=== PATIENT | male | born 1960 | race Caucasian/White ===

== ENCOUNTER 2018-09-15 06:25 | Day surgery (SDC) | payer BC ==
[~2018-09-15] VITALS: Ht 182.9 cm; Wt 134.5 kg
[~2018-09-15 06:25] MED LIST: ACETAMINOPHEN 500 MG TABLET PO PRN; BUPIVACAINE-EPI 0.25%-1:200000 MPF 30 ML VIAL. IJ ONE; DEXAMETHASONE SOD PHOS 20 MG/5 ML VIAL. ONE; LIDOCAINE 2% PF 5 ML VIAL. ONE; ONDANSETRON PF 4 MG/2 ML VIAL. ONE; PROPOFOL 20 ML IV ONE; ROCURONIUM 50 MG/5 ML VIAL. ONE; ceFAZolin SODIUM 3 GM in IV DEXTROSE 5% 100ML 100 ML IV PRN; fentaNYL PF VIAL 100 MCG/2 ML VIAL ONE
[2018-09-15] MEDS ORDERED: ATEN50TA PO (06:53)
[2018-09-15] MEDS ORDERED: NIFE90TA PO (06:54)
[2018-09-15] MEDS ORDERED: LISI-334 PO (06:55)
[2018-09-15] MEDS ORDERED: ASPI81TA50 PO (06:55)
[2018-09-15] MEDS ORDERED: PROCHLORPERAZINE 10 MG/2 ML VIAL. IV PRN (07:00)
[2018-09-15] MEDS ORDERED: IV RINGERS,LACTATED 1000ML 1,000 ML IV SCH (07:00)
[2018-09-15] MEDS ORDERED: fentaNYL PF VIAL 100 MCG/2 ML VIAL IV PRN ×2 (07:00)
[2018-09-15] MEDS ORDERED: MORPHINE SULFATE 2 MG/ML VIAL. IV PRN (07:00)
[2018-09-15] MEDS ORDERED: HYDROmorphone 2 MG/ML VIAL IV PRN (07:00)
[2018-09-15] MEDS ORDERED: ONDANSETRON PF 4 MG/2 ML VIAL. IV PRN (07:00)
[2018-09-15] MEDS ORDERED: LIDOCAINE 1% PF 2 ML VIAL. ID PRN (07:00)
[2018-09-15] MEDS ORDERED: BUPIVACAINE MPF 0.25% 30 ML VIAL. ONE (07:19)
[2018-09-15] MEDS ORDERED: MIDAZOLAM HCL/PF 2 MG/2 ML VIAL. ONE (07:23)
[2018-09-15] MEDS ORDERED: GLYCOPYRROLATE 1 MG/5 ML VIAL. ONE (08:07)
[2018-09-15] MEDS ORDERED: NEOSTIGMINE METHYLSULFATE 5 MG/5 ML SYRINGE. ONE (08:07)
[2018-09-15] MEDS ORDERED: ePHEDrine PF IN SALINE 50 MG/10 ML SYRINGE. IV ONE (08:17)
[2018-09-15] MEDS ORDERED: ROCURONIUM 50 MG/5 ML VIAL. ONE (08:27)
[2018-09-15] MEDS ORDERED: KETOROLAC 30 MG/ML INJ FOR OR. INJ ONE (08:54)
[2018-09-15] MEDS ORDERED: SEVOFLURANE 61 TO 120 MINUTES. IH ONE (09:16)
--- NOTE | 2018-09-15 09:21 | PDOC4 ---
Operative Note Operative Note Date: 09/15/2018 Preoperative diagnosis: Incarcerated ventral hernia Postoperative diagnosis: Same Procedure: Robotic-assisted laparoscopic hernia repair with mesh Surgeon: Timo Specimen: None Dictation: Patient is a 58-year-old male who is complaining of increasingly enlarging bulge just above his umbilicus in the midline becoming somewhat painful procedure of robotic-assisted laparoscopic ventral hernia repair with mesh was explained to the patient in detail all risks benefits were also discussed including bleeding infection injury to intra-abdominal contents possibly necessitating further open operations alternatives to this procedure also discussed with the patient who seemed to understand and gave both verbal and written consent to have the procedure performed. Patient was taken to the operating room placed in supine position general anesthesia was initiated once patient was sleep and intubated his abdomen was prepped and draped usual sterile fashion using ChloraPrep and area in the left upper quadrant was incised with 11 blade scalpel and a 5 mm Visiport was placed into the abdomen under direct visualization creating pneumoperitoneum once this was complete a da Alfonso 8 mm port was then placed in the left mid abdomen and one in the left lower abdomen the 5 mm Visiport was changed out to a da Alfonso port at this point the da Alfonso robot was brought in and docked all port sites surgeon went to the robotic console using a grasper and Endo Vickey scissors the hernia defect was visualized to had a large amount of incarcerated omentum within the hernia defect this was all reduced. The fascial defect was then closed with a running 20V LOC nonabsorbable suture. Ventral light ST mesh was then placed over the hernia defect this was sewn into place with a running 20V LOC absorbable suture. Once this was complete the pneumoperitoneum was reduced all ports removed port sites were all closed with 4 subarticular Monocryl and injected with quarter percent Marcaine with epinephrine. Patient was awakened and extubated in the operating room taken to recovery in stable condition all sponge instrument needle counts listed as correct estimated blood loss 20 mL CHRISTIANE WOOD MD Sep 15, 2018 09:21
--- NOTE | 2018-09-15 09:23 | DISCH ---
DISCHARGE INSTRUCTIONS Condition on Discharge Condition on Discharge: Stable Activity After Discharge Activity Instructions for Disc: Avoid exertion Other activity instructions: no lifting more than 20 pounds for 2 weeks Diet after Discharge Diet after Discharge: Regular Wound Incision Care Other wound/incision instructi: May shower in 24 hours Contacting the [facility] after DC Call your doctor for: If your condition worsens Follow-Up Follow up with: Dr. Wood in 2 weeks CHRISTIANE WOOD MD Sep 15, 2018 09:23
[2018-09-15] MEDS ORDERED: fentaNYL PF VIAL 100 MCG/2 ML VIAL ONE ×2 (09:26→09:30)
[2018-09-15] MEDS ORDERED: oxyCODONE/APAP 5/325 1 TAB TABLET PO ONE ×2 (10:15)
[2018-09-15 10:21] VITALS: BP 140/85
== END 2018-09-15 11:15 | disposition home or self-care (01) ==
LOC: SURG 06:25
PROVIDERS: ATTEND Surgery
DX: K43.6 Other and unspecified ventral hernia with obstruction, without gangrene (principal); I10 Essential (primary) hypertension; Z87.891 Personal history of nicotine dependence; Z72.89 Other problems related to lifestyle
CPT/HCPCS: 49653; A7015; C1781; J0171; J1100; J1885; J2001; J2250; J2405; J2704; J2710; J3010; J3490; S2900